=== PATIENT | male | born 1995 ===

== ENCOUNTER 2025-07-23 04:25 | Emergency (ER) | payer SELFPAY ==
[~2025-07-23] VITALS: Wt 73.2 kg
[2025-07-23 04:58] LABS: URINE AMPHETAMINES Positive (1000ng/ml); URINE BARBITURATES Negative (200ng/ml); URINE BENZODIAZEPINES Negative (200ng/ml); URINE CANNABINOIDS (THC) Positive (50ng/ml); URINE COCAINE Positive (300ng/ml); URINE METHADONE Negative (300ng/ml); URINE OPIATES Negative (300ng/ml); URINE PHENCYCLIDINE Negative (25ng/ml)
== END 2025-07-23 05:07 | disposition home or self-care (01) ==
LOC: ED 04:25
PROVIDERS: Internal Medicine
DX: F19.10 Other psychoactive substance abuse, uncomplicated (principal); R40.4 Transient alteration of awareness